=== PATIENT | male | born 1960 | race African-American/Black ===

== ENCOUNTER 2025-07-28 18:29 | Emergency (ER) | payer OTHER, BC ==
[2025-07-28 19:21] LABS: Hematocrit 33.7 % (42.0-52.0); Hemoglobin 12.2 g/dL (14.0-18.0); Mean Corpuscular Hemoglobin 31.4 pg (27.0-31.0); Mean Corpuscular Volume 86.8 fl (78.0-98.0); Red Blood Cell (RBC) Count 3.89 mill/uL (4.70-6.10); White Blood Cell (WBC) Count 4.7 10x3/uL (4.8-10.8)
[2025-07-28 19:22] LABS: Platelet Count 226 10x3/uL (130-400)
[2025-07-28 19:24] LABS: Platelet Adequacy Comment Appears Adequate
[2025-07-28 19:25] LABS: Troponin I Less than 0.010 ng/mL (< 0.028)
[2025-07-28 20:12] LABS: ALT (SGPT) 37 U/L (Less than 45); AST (SGOT) 42 U/L (11-34); Albumin 4.0 g/dL (3.1-4.5); Alkaline Phosphatase 48 U/L (40-110); Anion Gap 18 mmol/L (10-20); BUN (Urea Nitrogen) 23 mg/dL (8.4-25.7); Bilirubin, Total 0.6 mg/dL (0.3-1.2); Calc. Creatinine Clearance 0 mL/min (70-130); Calcium 9.3 mg/dL (7.8-10.44); Carbon Dioxide 18 mmol/L (23-31); Chloride 98 mmol/L (98-107); Globulin 3.1 g/dL (2.4-3.5); Glucose 100 mg/dL (80-115); Potassium 3.4 mmol/L (3.5-5.1); Sodium 131 mmol/L (136-145)
== END 2025-07-28 21:25 | disposition home or self-care (01) ==
LOC: NAV ERS 18:29
DX: R42 Dizziness and giddiness (principal); I10 Essential (primary) hypertension
CPT/HCPCS: 80053; 84484; 85025; 93005; 94760; 99284; J7030